=== PATIENT | female | born 1945 | race Caucasian/White ===

== ENCOUNTER → 2023-10-26 | Outpatient (CLI) | payer MEDICARE ==
[~2023-10-26] MED LIST: ALEN70TA80 PO; CALCIUM; FISH OIL; LEVO88TA7 PO; METF-900 PO; VITAMIN D; iohexol 300mg/ml 100ml inj. ONE
[2023-10-26 09:16] LABS: ALBUMIN 3.9 G/DL (3.4-5.0); ANION GAP 10 (8-16); BLOOD UREA NITROGEN 15 MG/DL (7-18); CALCIUM 9.4 MG/DL (8.5-10.1); CHLORIDE 103 MMOL/L (99-107); CREATININE 0.94 MG/DL (0.40-0.90); GLUCOSE 140 MG/DL (70-104); POTASSIUM 4.6 MMOL/L (3.5-5.1); SODIUM 139 MMOL/L (135-145); TOTAL CARBON DIOXIDE 25.9 MMOL/L (24-32); eGFR 57 ML/MIN
== END | disposition home or self-care (01) ==
LOC: RAD 08:34
PROVIDERS: ATTEND Family Medicine
DX: R90.82 White matter disease, unspecified (principal); E04.1 Nontoxic single thyroid nodule; R59.1 Generalized enlarged lymph nodes; Z85.850 Personal history of malignant neoplasm of thyroid
CPT/HCPCS: 36415; 70470; 70491; 80048; J3490; Q9967

== ENCOUNTER 2024-02-18 11:05 | Emergency (ER) | payer MEDICARE ==
[~2024-02-18] VITALS: Ht 154.9 cm; Wt 67.3 kg
[~2024-02-18 11:05] MED LIST changes: -iohexol 300mg/ml 100ml inj. ONE
[2024-02-18] MEDS ORDERED: MECL-302 PO (14:28)
[2024-02-18 14:37] VITALS: BP 145/66; PULSE 57; RESP 12; TEMP 98.2; O2SAT 99
== END 2024-02-18 14:40 | disposition home or self-care (01) ==
LOC: ER 11:06
DX: R42 Dizziness and giddiness (principal); R11.2 Nausea with vomiting, unspecified; H91.91 Unspecified hearing loss, right ear; M19.90 Unspecified osteoarthritis, unspecified site; Z88.0 Allergy status to penicillin; Z79.84 Long term (current) use of oral hypoglycemic drugs; Z79.899 Other long term (current) drug therapy
CPT/HCPCS: 82948; 93005; 99283; 99284

== ENCOUNTER 2024-03-26 10:45 | Outpatient (CLI) | payer MEDICARE ==
[~2024-03-26 10:45] MED LIST changes: +MECL-302 PO
[2024-03-27] MEDS ORDERED: GADOTERATE MEGLUMINE 7.5 MMOL/15 ML VIAL IV ONE (16:35)
== END 2024-03-26 23:59 | disposition home or self-care (01) ==
LOC: MRI 10:45
PROVIDERS: ATTEND Family Medicine
DX: D33.3 Benign neoplasm of cranial nerves (principal); I67.82 Cerebral ischemia; J32.2 Chronic ethmoidal sinusitis; R42 Dizziness and giddiness
CPT/HCPCS: 70553; A9575; 70552

== ENCOUNTER 2024-06-30 12:57 | Outpatient (CLI) | payer MEDICARE | END 2024-06-30 23:59 | disposition home or self-care (01) | LOC: VAS 12:57 | PROVIDERS: ATTEND Student in an Organized Health Care Education/Training Program | DX: I65.23 Occlusion and stenosis of bilateral carotid arteries (principal); H81.10 Benign paroxysmal vertigo, unspecified ear | CPT/HCPCS: 93880 ==

== ENCOUNTER 2024-10-19 08:49 | Emergency (ER) | payer MEDICARE ==
[~2024-10-19] VITALS: Ht 154.9 cm; Wt 67.3 kg
[2024-10-19] MEDS: dexamethasone 4mg tablet PO ONE ×2 (10:49→10:57)
[2024-10-19] MEDS ORDERED: dexamethasone 1mg tablet PO ONE (10:50)
[2024-10-19] MEDS ORDERED: ALBU8HFA INH (10:59)
[2024-10-19] MEDS ORDERED: PRED20TA PO (10:59)
[2024-10-19] MEDS ORDERED: INHA1EAC52 INH (11:02)
[2024-10-19] MEDS: DEXAMETHASONE 6 MG TABLET PO ONE (11:04)
[2024-10-19 11:43] VITALS: BP 153/74; PULSE 85; RESP 15; TEMP 98.1; O2SAT 95
== END 2024-10-19 11:46 | disposition home or self-care (01) ==
LOC: ER 08:50
DX: J06.9 Acute upper respiratory infection, unspecified (principal); B97.89 Other viral agents as the cause of diseases classified elsewhere; Z88.0 Allergy status to penicillin; Z79.899 Other long term (current) drug therapy; Z79.84 Long term (current) use of oral hypoglycemic drugs
CPT/HCPCS: 71045; 93005; 99283

== ENCOUNTER 2025-03-09 07:27 | Emergency (ER) | payer MEDICARE ==
[~2025-03-09] VITALS: Ht 154.9 cm; Wt 60.0 kg
[~2025-03-09 07:27] MED LIST changes: +ALBU8HFA INH; +INHA1EAC52 INH; +PRED20TA PO
[2025-03-09] MEDS: HYDROcodone/acetaminophen 5mg/325mg tablet PO ONE (08:49)
--- NOTE | 2025-03-09 09:24 | RADIOLOGY REPORT ---
EXAM: CT CT CERVICAL SPINE INDICATION: neck pain EXAM DATE: 03/09/2025 08:40 AM COMPARISON: None TECHNIQUE: Multiple axial CT images of the cervical spine were obtained using bone algorithm. Sagitta l and coronal reformatting was done. Bone and soft tissue windows were reviewed. Radiation Dose Information: CT Dose: CTDI volume is 16.1 mGy. Dose-length product is 363.6 mGy*cm FINDINGS: The cervical alignment is intact. The curvature is maintained. Multilevel facet arthropathy. No acute cervical spine fracture is identified. The vertebral body heights are intact. No suspicious osseous lesions are identified. No significant spinal stenosis. Mild multilevel neural foraminal stenosis. There is no prevertebral soft tissue swelling. IMPRESSION: 1. No evidence of acute cervical spine fracture or traumatic malalignment. 2. Degenerative changes. All CT scans at this medical facility are performed using dose modulation techniques as appropriate t o a performed exam including the following: Automated exposure control was utilized; adjustment of th e MA and/or KV according to patient size; and use of iterative reconstruction technique.
[2025-03-09] MEDS ORDERED: LIDO-52 TOP (11:48)
[2025-03-09] MEDS ORDERED: HYDR-3965 PO (11:48)
[2025-03-09] MEDS ORDERED: DICL20GE TOP (11:48)
--- NOTE | 2025-03-09 11:49 | Physician Documentation ---
History of Present Illness ~ Chief Complaint: Neck pain Stated Complaint: NECK PAIN Time Seen by MD: 07:57 Primary Medical Doctor: stevenson [facility] This is a very pleasant 79-year-old female who presents for evaluation of neck pain for the last three days. No obvious trigger, trauma provocation. Worse with range of motion of the neck. Did not improve with the administration of arthritis Tylenol. This never happened in the past. Denies any headache. Denies any chest pain. Denies any weakness in bilateral upper extremities. No sensation changes. No other symptoms. No concern for tobacco, alcohol or illicit substances use Medication Reconciliation Allergies: Coded Allergies: Penicillins (Verified Allergy, Unknown, SEVERE SWELLING AND RASH, 10/19/24) CHILDHOOD ALLERGY Scheduled Alendronate Sodium (Alendronate Sodium), 1 TAB PO Q7D, (Reported) Levothyroxine Sodium (Levothyroxine Sodium), 1 TAB PO QAM, (Reported) Meclizine HCl (Meclizine HCl), 1 TAB PO Q8H Metformin Hcl* (Metformin ER*), 2 TAB PO QAM, (Reported) Prednisone* (Prednisone*), 2 TAB PO DAILY albuterol inhaler (Pro-Air Inhaler), 2 PUFFS INH Q4H Miscellaneous Medications [Calcium], (Reported) [Fish Oil], (Reported) [Vitamin D], (Reported) Durable Medical Equipment Inhaler, Assist Devices (Breatherite Spacer-Adult Mask), EA INH PRN PRN for cough & congestion, (DME) Past Medical History Other Past Surgical History: Right breast lumpectomy, Hand tendon surgery, partial thyroidectomy Review of Systems ROS 10 point review of systems was performed and unless noted above in HPI is negative for acute process/complaint. Physical Exam Vital Signs: Temperature: 96.4, Source: Temporal, Heart Rate: 57, Respiratory Rate: 15, BP: 148/66, Pulse Oximetry: 99, Weight: 60.000 Oxygen Flow Rate: 0 Physical Exam GENERAL: Awake, alert, oriented, GCS 15, no apparent distress, non-toxic appearing, answers questions, follows commands appropriately. HEENT: Atraumatic, normocephalic, pupils equal, extraocular muscles intact, sclerae anicteric, mucus membranes moist, oropharynx is clear, no stridor. NECK: supple, full active range of motion, trachea midline, no thyromegaly, no lymphadenopathy, no JVD. CARDIOVASCULAR: regular rate/rhythm, no murmurs/gallops/rubs, Pulses are 2+ in all extremities and symmetric. Capillary refill less than 2 seconds. PULMONARY: Nonlabored, good air movement ,no respiratory distress, speaking in full sentences, clear to auscultation bilaterally, no wheezing, no ronchi, no rales, no accessory muscle use. GASTROINTESTINAL: Soft, non-tender, non-distended, normal active bowel sounds, no organomegaly, no pulsatile masses, no CVA tenderness. NEUROLOGIC: Lucid with normal mental status. Normal facial symmetry. Moves all extremities symmetrically and with purpose. No truncal ataxia. Speech is fluid without evidence of dysarthria or aphasia, no focal deficits appreciated. MUSCULOSKELETAL: There is full range of motion of all extremities. There is no joint pain or joint swelling or joint erythema. There is no muscle pain or tenderness or swelling. EXTREMITIES: warm, well-perfused, no cyanosis, no clubbing, no edema, no acute deformities. Skin: warm, dry, no rashes or lesions, no jaundice, no petechiae orpurpura. No ecchymosis. PSYCHIATRIC: Normal affect, normal insight, normal concentration. Focused exam: [] Left-sided upper trapezius belly muscle spasm, no midline tenderness to palpation, no step-offs. Neurologically intact in bilateral upper extremities. Progress Results/Orders Results/Orders Orders - ABUNDIO MURCIA DO Ct Cervical Spine (03/09/25 08:40) Completed Orders - ABUNDIO MURCIA DO Ct Cervical Spine (03/09/25 08:40) Hydrocodone/Apap 5/325mg Tab ([place] 5/32 (03/09/25 08:40) Medications Received in ER Medications (Trade) Dose Ordered Sig/David Route PRN Reason Start Time Stop Time Status Last Admin Dose Admin ([place] 5/325mg tablet) 1 tab ONCE ONCE PO 03/09/25 08:40 03/09/25 11:23 DC 03/09/25 08:49 1 TAB Vital Signs 03/09/25 03/09/25 03/09/25 03/09/25 07:31 08:34 08:49 10:03 Temp 96.4 96.4 Pulse 66 57 Resp 15 14 18 15 B/P (MAP) 173/78 148/66 (93) Pulse Ox 100 99 O2 Flow Rate 0 Medical Decision Making Findings Facility Status: ED Holds, RME process The plan was discussed with the patient, who demonstrates clear understanding of the plan and is in agreement with the plan unless otherwise noted in the chart. All questions have been answered, all concerns were addressed unless otherwise documented. I was available throughout their ED stay for frequent reassessment and questions. Differential Diagnoses (considered and possible or likely): [Surface sprain, muscle spasm, cervical spine fracture and dislocation was significantly less likely. Highly unlikely to represent myositis.] ??Differential Diagnoses (considered and unlikely, not requiring evaluation currently): [Noticed neurologic damage, unlikely to represent rectal plexus injury or radiculopathy] MDM Data Please see [facility] for the following: Independent Historians and external Records Review. Historian: [Patient] Independent Historians: ?[None] Medication Management: [Reviewed medication list] Social History and determinants: [Reviewed] Please see the body of the note for the following: Any independent interpretations of ECG, imaging studies. All vitals signs/haemodynamics, ordered tests were independently reviewed and interpreted by myself. Nursing triage complaint and vitals reviewed, additional nursing notes were reviewed as available and I agree unless otherwise noted or documented in contradiction in the chart Vital Signs: Independently reviewed Labs: Independently interpreted Imaging: Independently interpreted Old Medical Records: Independently reviewed, see [facility] for relevant summary and information Pulse Oximetry: [98%] interpreted as [normal on room air] by me Additionally notably showing: [Hemodynamically stable. CT shows no fracture or subluxation] Tests considered but not ordered include: [Hematologic workup has been considered but does not appear to be necessary given mechanical nature of the injury.] Social Determinants of Health Impact: Patient was evaluated in [facility], or [facility] [place] to healthcare due to below par ratio of patient to medical providers. [] Comorbid Conditions Impacting Present Evaluation and Care/Treatment: [Multiple, see list] Management Discussions with other Healthcare Providers: [None] Treatment and Disposition Medication Management (Given or considered): [Pain management]. See EMR for deta ils Consideration for Hospitalization/Escalation/Deescalation of Care: Admission for observation has been considered, [however the patient is able to tolerate p.o., their symptoms are controlled, they are able to rely on oral medications, and their chief complaint/diagnosis can be managed on outpatient basis.] ?ED Course:?[No clinical deterioration] ?Shared decision making:?[Patient is hemodynamically stable for discharge home with follow with their primary care provider. [ ] Specific and cautious return precautions provided and discussed with full understanding. Any incidental findings were also discussed and follow up recommendations given. [] All questions answered. Patient/family were able to verbalize back return precautions. Patient/family agree to plan. Copies of imaging and laboratory studies were provided.] Code status:?FULL Please see the full Electronic Medical Record for full details of nursing documentation, medications list, other records of complete past medical history and conditions, vital signs, laboratory studies, and any radiologic study interpretations by radiologists. Portions of this note were completed using [employer] dictation software and as a result there may exist minor errors in spelling. I have reviewed elements of past family and social history and agree as included in note. Departure Disposition: HOME / SELF CARE / HOMELESS Impression: Primary Impression: Neck muscle spasm Condition: Improved Discharge Instructions: Cervical Sprain Referrals: NO PRIMARY CARE PROVIDER (PCP) Prescriptions Diclofenac Sodium (Voltaren Arthritis Pain) 1 % Gel..gram. 2 G TOP BID PRN for pain for 7 Days, #50 G Prov: ABUNDIO MURCIA DO 03/09/25 Lidocaine (Lidoderm) 5 % Adh..patch 1 PATCH TOP DAILY for 30 Days, #30 PATCH 0 Refills may wear up to 12 hours Prov: ABUNDIO MURCIA DO 03/09/25 Hydrocodone Bit/Acetaminophen 5/325 MG ([place] 5/325 MG) 5 Mg/325 Mg Tablet 1 TAB PO TID PRN PRN for pain for 5 Days, #15 TAB Prov: ABUNDIO MURCIA DO 03/09/25 Education Educated: Patient Educated regarding: diagnosis, treatment, prognosis, need for follow up Signature Scribe Signature: No scribe Attestation: This note accurately reflects clinical decisions, work performed by myself, DO TWIN Hartman NICHOLAS M DO Mar 09, 2025 11:49
[2025-03-09 12:04] VITALS: BP 139/87; PULSE 89; RESP 16; TEMP 96.4; O2SAT 97
== END 2025-03-09 12:09 | disposition home or self-care (01) ==
LOC: ER 07:29
DX: M62.838 Other muscle spasm (principal); Z88.0 Allergy status to penicillin; Z79.899 Other long term (current) drug therapy
CPT/HCPCS: 72125; 99284